=== PATIENT | female | born 1985 | race Caucasian/White ===

== ENCOUNTER 2018-11-25 12:31 | Outpatient (CLI) | payer MEDICAID ==
[2018-11-25 13:35] LABS: ADD UMIC NO; UR ASCORBIC ACID NEGATIVE (NEGATIVE); UR BILIRUBIN (Dip) NEGATIVE (NEGATIVE); UR BLOOD (Dip) NEGATIVE (NEGATIVE); UR CLARITY CLEAR (CLEAR); UR COLOR STRAW (YELLOW); UR GLUCOSE (Dip) NEGATIVE (NEGATIVE); UR KETONES (Dip) NEGATIVE (NEGATIVE); UR LEUKOCYTE ESTERASE (Dip) NEGATIVE Leu/ul (NEGATIVE); UR NITRITE (Dip) NEGATIVE (NEGATIVE); UR SPECIFIC GRAVITY (Dip) 1.006 (1.003-1.030); UR TOTAL PROTEIN (Dip) NEGATIVE (NEGATIVE); UR UROBILINOGEN (Dip) NEGATIVE (NEGATIVE)
== END 2018-11-25 15:17 | disposition home or self-care (01) ==
LOC: OBT 12:31 → L-D 12:32 → OBT 15:17
DX: O47.03 False labor before 37 completed weeks of gestation, third trimester (principal); Z3A.32 32 weeks gestation of pregnancy
CPT/HCPCS: 76817; 81003; 82731

== ENCOUNTER 2018-12-02 11:05 | Inpatient (IN) | payer MEDICAID ==
[2018-12-02] MEDS: LACTATED RINGER'S 1,000 ML IV ×3 (11:31→20:43)
[2018-12-02] MEDS: BETAMET NA PHOS/AC(6 MG/ML) 2 ML INJ SYG IM (11:40)
[2018-12-02 11:44] LABS: ADD MAN DIFF? NO
[2018-12-02 11:47] LABS: BASOPHILS % 0.2 % (0.0-2.0); EOSINOPHILS % 0.3 % (0.0-7.0); HEMATOCRIT 33.9 % (37.0-47.0); HEMOGLOBIN 11.4 g/dl (12.0-16.0); LYMPHOCYTES # 1.2 10^3/ul (0.8-2.9); LYMPHOCYTES % 12.1 % (15.0-51.0); MEAN CORPUSCULAR HEMOGLOBIN 30.3 pg (29.0-33.0); MEAN CORPUSCULAR HGB CONC 33.6 g/dl (32.0-37.0); MEAN CORPUSCULAR VOLUME 90.2 fl (82.0-101.0); MEAN PLATELET VOLUME 10.1 fl (7.4-10.4); MONOCYTE # 0.7 10^3/ul (0.3-0.9); NEUTROPHILS % 78.6 % (39.0-77.0); PLATELET COUNT 251 10^3/UL (140-415); RED BLOOD COUNT 3.76 10^6/ul (4.20-5.40); RED CELL DISTRIBUTION WIDTH 15.6 % (11.5-14.5)
[2018-12-02 11:47] LABS: WHITE BLOOD COUNT 10.2 10^3/ul (4.8-10.8)
[2018-12-02 12:08] LABS: GLUCOSE 81 mg/dl (70-220)
[2018-12-02 13:15] LABS: INR 0.89; PROTIME 12.1 Sec (11.9-14.9); PT RATIO 0.9
[2018-12-02] MEDS ORDERED: LIDOCAINE 1.5%/EPI MPF (SDV) 30 ML VIAL (14:40)
[2018-12-02 15:07] LABS: HEPATITIS B SURFACE ANTIGEN NEGATIVE (NEGATIVE)
[2018-12-02] MEDS: MAGNESIUM SULFATE 4 GM/100 ML 100 ML IVPB (15:12)
[2018-12-02] MEDS: MAGNESIUM SULFATE 20 GM/500 ML 500 ML IV (15:33)
[2018-12-02 22:17] LABS: RAPID PLASMA REAGIN NONREACTIVE (NR)
[2018-12-03] MEDS: BETAMET NA PHOS/AC(6 MG/ML) 2 ML INJ SYG IM
[2018-12-03] MEDS: MAGNESIUM SULFATE 20 GM/500 ML 500 ML IV (01:32)
[2018-12-03 01:33] LABS: MAGNESIUM 5.2 mg/dl (1.7-2.5)
[2018-12-03 08:18] LABS: MAGNESIUM 5.1 mg/dl (1.7-2.5)
[2018-12-03 12:52] LABS: MAGNESIUM 5.2 mg/dl (1.7-2.5)
[2018-12-03] MEDS: LACTATED RINGER'S 1,000 ML IV (21:51)
[2018-12-04] MEDS: LACTATED RINGER'S 1,000 ML IV ×4 (05:17→20:58)
[2018-12-05] MEDS: LACTATED RINGER'S 1,000 ML IV ×2 (13:44→20:53)
[2018-12-06] MEDS: LACTATED RINGER'S 1,000 ML IV ×3 (04:39→11:12)
== END 2018-12-06 13:05 | disposition home or self-care (01) | DRG 998 ==
LOC: L-D 11:05
PROVIDERS: Specialist
DX: O76 Abnormality in fetal heart rate and rhythm complicating labor and delivery (principal); Z3A.33 33 weeks gestation of pregnancy
CPT/HCPCS: 76818; 82947; 82962; 83735; 85025; 85610; 85730; 86592; 86850; 86900; 86901; 87340

== ENCOUNTER 2018-12-30 13:02 | Outpatient (CLI) | payer MEDICAID | END 2018-12-30 14:45 | disposition home or self-care (01) | LOC: OBT 13:02 → L-D 13:02 → OBT 14:45 | DX: O24.410 Gestational diabetes mellitus in pregnancy, diet controlled (principal); Z3A.37 37 weeks gestation of pregnancy | CPT/HCPCS: 76818 ==

== ENCOUNTER 2019-01-13 18:07 | Inpatient (IN) | payer MEDICAID ==
[2019-01-13] MEDS ORDERED: MISOPROSTOL 200 MCG TAB PR ×2 (18:30→21:00)
[2019-01-13] MEDS ORDERED: CARBOPROST 250 MCG INJ IM (18:30)
[2019-01-13] MEDS: LACTATED RINGER'S 1,000 ML IV (19:02)
[2019-01-13 19:34] LABS: ADD MAN DIFF? NO
[2019-01-13 19:38] LABS: BASOPHILS % 0.3 % (0.0-2.0); EOSINOPHILS # 0.1 10^3/ul (0.0-0.5); EOSINOPHILS % 0.6 % (0.0-7.0); HEMATOCRIT 31.5 % (37.0-47.0); HEMOGLOBIN 10.5 g/dl (12.0-16.0); LYMPHOCYTES # 1.2 10^3/ul (0.8-2.9); LYMPHOCYTES % 14.9 % (15.0-51.0); MEAN CORPUSCULAR HGB CONC 33.3 g/dl (32.0-37.0); MEAN CORPUSCULAR VOLUME 92.9 fl (82.0-101.0); MEAN PLATELET VOLUME 10.7 fl (7.4-10.4); MONOCYTE # 0.6 10^3/ul (0.3-0.9); MONOCYTES % 8.1 % (0.0-11.0); NEUTROPHIL # 5.9 10^3/ul (1.6-7.5); NEUTROPHILS % 74.3 % (39.0-77.0); NUCLEATED RED BLOOD CELLS% 0.3 /100WBC (0.0-0.0); PLATELET COUNT 212 10^3/UL (140-415); RED BLOOD COUNT 3.39 10^6/ul (4.20-5.40); RED CELL DISTRIBUTION WIDTH 16.4 % (11.5-14.5)
[2019-01-13 19:38] LABS: WHITE BLOOD COUNT 7.9 10^3/ul (4.8-10.8)
[2019-01-13 19:53] LABS: INR 0.85; PROTIME 11.7 Sec (11.9-14.9); PT RATIO 0.9
[2019-01-13 19:54] LABS: PARTIAL THROMBOPLASTIN TIME 28.6 Sec (23.0-35.0)
[2019-01-13] MEDS: ONDANSETRON 4 MG INJ IV (20:12)
[2019-01-13] MEDS: CITRIC ACID/NA CITRATE 30 ML CUP PO (20:12)
[2019-01-13 20:29] LABS: HEPATITIS B SURFACE ANTIGEN NEGATIVE (NEGATIVE)
[2019-01-13] MEDS ORDERED: FENTAnyl 50 MCG/ML VIAL (20:35)
[2019-01-13] MEDS ORDERED: OXYTOCIN 10 UNIT INJ (20:35)
[2019-01-13] MEDS ORDERED: morphine SULFATE/PF (10 MG/10 ML) INJ (20:35)
[2019-01-13] MEDS ORDERED: METOCLOPRAMIDE 10 MG INJ (20:35)
[2019-01-13] MEDS ORDERED: PHENYLephrine (100 MCG/ML) 5ML SYG (20:35)
[2019-01-13] MEDS ORDERED: NA PHOSPHATE/BIPHOS 133 ML ENEMA PR (21:00)
[2019-01-13] MEDS: SENNA/DOCUSATE NA (8.6MG/50MG) TAB PO (21:00)
[2019-01-13] MEDS ORDERED: OXYCODONE/ACETAMINOPHEN (5/325) TAB PO (21:00)
[2019-01-13] MEDS ORDERED: LANOLIN HPA 1 PKT TOP (21:00)
[2019-01-13] MEDS ORDERED: KETOROLAC 30 MG INJ (21:01)
[2019-01-13] MEDS ORDERED: MIDAZOLAM 1 MG/ML 2 ML INJ (21:04)
[2019-01-13] MEDS: CEFAZOLIN 2 GM/50 ML (PMX) 50 ML IVPB (21:30)
[2019-01-13] MEDS: OXYTOCIN 30 UNITS/LR 500 ML IV (21:58)
[2019-01-13] MEDS: morphine 2 MG INJ IV (22:29)
[2019-01-13] MEDS ORDERED: NALBUPHINE HCL (10 MG/1 ML) INJ IV (22:30)
[2019-01-13] MEDS ORDERED: DIPHENHYDRAMINE 50 MG INJ IV (22:30)
[2019-01-13] MEDS ORDERED: TRIMETHOBENZAMIDE 100 MG/ML VIAL IM (22:30)
[2019-01-13] MEDS ORDERED: NALOXONE (0.4 MG/ML) INJ IV (22:30)
[2019-01-13] MEDS ORDERED: ONDANSETRON 4 MG INJ IV (22:30)
[2019-01-13] MEDS ORDERED: morphine 2 MG INJ IV (22:30)
[2019-01-13] MEDS: METHYLERGONOVINE 0.2 MG INJ IM (22:38)
[2019-01-14] MEDS: OXYTOCIN 30 UNITS/LR 500 ML IV ×2 (00:08→12:38)
[2019-01-14] MEDS: LACTATED RINGER'S 1,000 ML IV ×4 (01:00→17:40)
[2019-01-14] MEDS: morphine 2 MG INJ IV (03:35)
[2019-01-14 07:52] LABS: ADD MAN DIFF? NO
[2019-01-14 07:55] LABS: BASOPHILS % 0.1 % (0.0-2.0); EOSINOPHILS % 0.1 % (0.0-7.0); HEMATOCRIT 22.5 % (37.0-47.0); HEMOGLOBIN 7.4 g/dl (12.0-16.0); LYMPHOCYTES # 0.8 10^3/ul (0.8-2.9); LYMPHOCYTES % 6.6 % (15.0-51.0); MEAN CORPUSCULAR HEMOGLOBIN 30.6 pg (29.0-33.0); MEAN CORPUSCULAR HGB CONC 32.9 g/dl (32.0-37.0); MEAN PLATELET VOLUME 10.4 fl (7.4-10.4); MONOCYTE # 0.7 10^3/ul (0.3-0.9); MONOCYTES % 5.9 % (0.0-11.0); NEUTROPHIL # 9.9 10^3/ul (1.6-7.5); NEUTROPHILS % 86.4 % (39.0-77.0); PLATELET COUNT 165 10^3/UL (140-415); RED BLOOD COUNT 2.42 10^6/ul (4.20-5.40); RED CELL DISTRIBUTION WIDTH 16.6 % (11.5-14.5)
[2019-01-14 07:55] LABS: WHITE BLOOD COUNT 11.5 10^3/ul (4.8-10.8)
[2019-01-14] MEDS: SENNA/DOCUSATE NA (8.6MG/50MG) TAB PO ×2 (09:25→21:02)
[2019-01-14] MEDS: KETOROLAC 30 MG INJ IV ×2 (09:26→17:39)
[2019-01-14 15:01] LABS: RAPID PLASMA REAGIN NONREACTIVE (NR)
[2019-01-14] MEDS: FERROUS SULFATE (EC) 325 MG TAB PO (21:03)
[2019-01-14] MEDS: OXYCODONE/ACETAMINOPHEN (5/325) TAB PO (22:46)
[2019-01-15] MEDS: IBUPROFEN 600 MG TAB PO ×4 (00:16→17:03)
[2019-01-15] MEDS: LACTATED RINGER'S 1,000 ML IV (02:15)
[2019-01-15] MEDS: FERROUS SULFATE (EC) 325 MG TAB PO ×3 (09:01→21:03)
[2019-01-15] MEDS: SENNA/DOCUSATE NA (8.6MG/50MG) TAB PO ×2 (09:01→21:03)
[2019-01-15] MEDS ORDERED: POLYSACCHARIDE IRON COMPLEX CAP PO (11:00)
[2019-01-15] MEDS ORDERED: DOCUSATE SODIUM 100 MG CAP PO (11:00)
[2019-01-15] MEDS: OXYCODONE/ACETAMINOPHEN (5/325) TAB PO ×3 (12:40→21:04)
[2019-01-16] MEDS: IBUPROFEN 600 MG TAB PO ×3 (00:26→11:49)
[2019-01-16] MEDS: SENNA/DOCUSATE NA (8.6MG/50MG) TAB PO (08:53)
[2019-01-16] MEDS: FERROUS SULFATE (EC) 325 MG TAB PO ×2 (08:53→13:00)
[2019-01-16] MEDS: MEASLES,MUMPS,RUBELLA VACCINE INJ SC* (09:24)
[2019-01-16] MEDS: DIPHTH/TET/ACEL PERTUSS (ADULT) 0.5 ML VIAL IM* (09:24)
[2019-01-16] MEDS: OXYCODONE/ACETAMINOPHEN (5/325) TAB PO (10:44)
== END 2019-01-16 14:05 | disposition home or self-care (01) | DRG 785 ==
LOC: PP1 01-14 00:16 → L-D 18:07
PROVIDERS: Specialist
PROC: 10D00Z1 Extraction of Products of Conception, Low, Open Approach (ICD-10-PCS; principal; 2019-01-13 20:00)
PROC: 0UB70ZZ Excision of Bilateral Fallopian Tubes, Open Approach (ICD-10-PCS; 2019-01-13 20:00)
DX: O34.219 Maternal care for unspecified type scar from previous cesarean delivery (principal); O24.429 Gestational diabetes mellitus in childbirth, unspecified control; O90.81 Anemia of the puerperium; D64.9 Anemia, unspecified; Z3A.39 39 weeks gestation of pregnancy; Z37.0 Single live birth; Z30.2 Encounter for sterilization
CPT/HCPCS: 82962; 85025; 85610; 85730; 86592; 86850; 86900; 86901; 87340; 88302; 99464